=== PATIENT | female | born 1990 | race Caucasian/White ===

== ENCOUNTER 2017-10-24 21:05 | Emergency (ER) | payer MEDICAID ==
[2017-10-24] MEDS ORDERED: NS 1,000 ML IV ONE (21:38)
[2017-10-24 22:03] LABS: PLATELET COUNT 293 10^3/uL (150-400)
--- NOTE | 2017-10-24 22:06 | EDPHY ---
H & P Stated Complaint: abd pain- 4-5 weeks Time Seen by Provider: 10/24/17 21:34 HPI/ROS: CHIEF COMPLAINT: Right lower quadrant pain radiating to groin, 5 weeks HISTORY OF PRESENT ILLNESS: Patient is a 27-year-old female who comes to the emergency department her complaining of right lower quadrant pain radiating to her groin that began today. No fever. No urinary symptoms. No flank pain. No vaginal bleeding. She is 5 weeks . This is her 3rd . The other 2 were vaginal deliveries with no complications. She does have a history of endometriosis as well as PID and has been told that she has some scarring on her right ovary and fallopian tube. She is concerned about ectopic . She has been slightly nauseous but has not vomited. No history of abdominal surgeries. No diarrhea. Severity: Moderate Modifying factors: None REVIEW OF SYSTEMS: Constitutional: denies: chills, fever, recent illness, recent injury EENTM: denies: blurred vision, double vision, nose congestion Respiratory: denies: cough, shortness of breath Cardiac: denies: chest pain, irregular heart rate, lightheadedness, palpitations Gastrointestinal see HPI Genitourinary: See HPI, no dysuria or frequency, no hematuria, now pain Musculoskeletal: denies: joint pain, muscle pain Skin: denies: lesions, rash, jaundice, bruising Neurological: denies: headache, numbness, paresthesia, tingling, dizziness, weakness Hematologic/Lymphatic: denies: blood clots, easy bleeding, easy bruising Immunologic/allergic: denies: HIV/AIDS, transplant 10 systems reviewed and negative except as noted EXAM: GENERAL: Well-appearing, well-nourished and in no acute distress. HEAD: Atraumatic, normocephalic. EYES: Pupils equal round and reactive to light, extraocular movements intact, sclera anicteric, conjunctiva are normal. ENT: TMs normal, nares patent, oropharynx clear without exudates. Moist mucous membranes. NECK: Normal range of motion, supple without lymphadenopathy or JVD. LUNGS: Breath sounds clear to auscultation bilaterally and equal. No wheezes rales or rhonchi. HEART: Regular rate and rhythm without murmurs, rubs or gallops. ABDOMEN: Soft, nontender, normoactive bowel sounds. No guarding, no rebound. No masses appreciated. : Pelvic exam, no cervical motion tenderness, scant white discharge. No bleeding. Cultures taken and sent. BACK: No CVA tenderness, no spinal tenderness, step-offs or deformities EXTREMITIES: Normal range of motion, no pitting or edema. No clubbing or cyanosis. NEUROLOGICAL: Cranial nerves II through XII grossly intact. Normal speech, normal gait. 5/5 strength, normal movement in all extremities, normal sensation , normal reflexes PSYCH: Normal mood, normal affect. SKIN: Warm, dry, normal turgor, no visible rashes or lesions. Source: Patient Exam Limitations: No limitations - Personal History LMP (Females 10-55): Current Tetanus Diphtheria and Acellular Pertussis (TDAP): Yes - Medical/Surgical History Hx Asthma: No Hx Chronic Respiratory Disease: No Hx Diabetes: No Hx Cardiac Disease: No Hx Renal Disease: No Hx Cirrhosis: No Hx Alcoholism: No Hx HIV/AIDS: No Hx Splenectomy or Spleen Trauma: No Other PMH: endometrosis, PID - Family History Significant Family History: No pertinent family hx - Social History Smoking Status: Former smoker Alcohol Use: Sober Drug Use: None Constitutional: Initial Vital Signs Temperature (C) 37 C 10/24/17 21:08 Heart Rate 70 10/24/17 21:08 Respiratory Rate 20 10/24/17 21:08 Blood Pressure 153/76 H 10/24/17 21:08 O2 Sat (%) 99 10/24/17 21:08 O2 Delivery Mode Room Air Allergies/Adverse Reactions: No Known Allergies Allergy (Unverified 10/24/17 21:07) Home Medications: Medication Instructions Recorded NK [No Known Home Meds] 10/24/17 Medical Decision Making - Diagnostics Imaging: Discussed imaging studies w/ book trimmer Radiologist ED Course/Re-evaluation: 11:00 p.m. We discussed the patient's lab and ultrasound results which are overall reassuring. No seen currently. Her quant is quite low. She did have some spotting 1 week ago. It is possible she had a miscarriage verses an ectopic verses an intrauterine that is too early. She has no right lower quadrant tenderness. No sign of hematuria or kidney stone on ultrasound. I will refer her to OB for follow-up in 48-72 hours for recheck. We also discussed the possibility of appendicitis although she is not having those symptoms currently and indications for returning to the emergency department. 11:20 p.m. I spoke with Dr. Hudson from [facility]. He agrees with the plan to have patient follow up with them in 48 hr for repeat quant and ultrasound. He also requested we give her RhoGAM. She states that she has type a negative. Will confirm that here. She states that she has had to have RhoGAM with her previous 2 pregnancies. Differential Diagnosis: Partial list of the Differential diagnosis considered include but were not limited to; ectopic , miscarriage, ovarian cyst, kidney stone, urinary tract infection and although unlikely based on the history and physical exam, I also considered appendicitis, obstruction, PID. I discussed these differential diagnoses and the plan with the patient as well as the usual and expected course. The patient understands that the diagnosis is provisional and that in medicine we are not always correct and that further workup is often warranted. Usual and customary warnings were given. All of the patient's questions were answered. The patient was instructed to return to the emergency department should the symptoms at all worsen or return, otherwise to followup with the physician as we discussed. - Data Points Laboratory Results: Laboratory Results 10/24/17 21:50 10/24/17 21:50 Medications Given: Discontinued Medications Sodium Chloride (Ns) 1,000 mls @ 0 mls/hr IV EDNOW ONE; Wide Open PRN Reason: Protocol Stop: 10/24/17 21:39 Last Admin: 10/24/17 22:35 Dose: 1,000 mls Departure - Departure Disposition: Home, Routine, Self-Care Clinical Impression: Qualifiers: Weeks of gestation: unspecified Qualified Code(s): Z34.90 - Encounter for supervision of normal , unspecified, unspecified trimester Abdominal pain Qualifiers: Abdominal location: right lower quadrant Qualified Code(s): R10.31 - Right lower quadrant pain Condition: Fair Instructions: (ED), Abdominal Pain (ED) Additional Instructions: Follow-up in 24 hr with [facility] Dr. Monzon for repeat quant level and ultrasound. I will write she way lab order for the with quant that she maintain before going to see the OBGYN. RETURN TO THE LAB FOR A REPEAT TEST PRIOR TO YOUR FOLLOW UP DANCE IN[employer] APPT. YOU WILL NEED TO CALL FOR [employer] IN THE A.M. Referrals: Ayush Monzon MD [Medical Doctor] - 1-2 days without fail
[2017-10-25 01:23] VITALS: BP 110/67
[2017-10-25 12:11] LABS: GC AMPLIFICATION GENPROBE NEGATIVE (NEGATIVE)
== END 2017-10-25 01:15 | disposition home or self-care (01) ==
DX: O99.89 Other specified diseases and conditions complicating pregnancy, childbirth and the puerperium (principal); R10.31 Right lower quadrant pain; E86.9 Volume depletion, unspecified; Z3A.01 Less than 8 weeks gestation of pregnancy; Z87.891 Personal history of nicotine dependence

== ENCOUNTER 2018-02-11 12:33 | Emergency (ER) | payer MEDICAID ==
--- NOTE | 2018-02-11 12:58 | EDPHY ---
H & P Time Seen by Provider: 02/11/18 12:57 HPI/ROS: CHIEF COMPLAINT: Nausea and vomiting HISTORY OF PRESENT ILLNESS: Approximately 20 weeks started feeling sick last night with heartburn and reflux. She tried milk but it made her throw up and then she tried Tums and made her throw up she has had diarrhea about 10 times. She has no nausea but every time she tries to eat or drink something she has been vomiting for the last 12 hr. Symptoms moderate to severe, not associated with urinary symptoms vaginal bleeding or fever or chills. Initially pain was upper abdomen and epigastric region now it is more diffuse. REVIEW OF SYSTEMS: Eye: no change in vision ENT: no sore throat Cardiac: no chest pain or syncope Pulmonary: no short of breath, has had a dry nonproductive cough for the past 48 hr Abdomen: HPI Musculoskeletal: no back pain Skin: no rash Neuro: no headache Constitutional: no fever : no urinary symptoms A comprehensive 10 point review of systems is otherwise negative aside from elements mentioned in the history of present illness. PAST MEDICAL HISTORY: 20 weeks , previous visit 10/24/2017 reviewed Social history: Quit smoking, no alcohol General Appearance: Alert and conversant, cooperative. Eyes: No scleral icterus. ENT, Mouth: Dry mucous membranes Respiratory: Normal respiratory effort, breath sounds equal, lungs are clear to auscultation. No wheezing. Full sentences. Cardiovascular: Regular rate and rhythm. Gastrointestinal: Abdomen is soft and non tender. Gravid, negative for McBurney's point tenderness or Nuno sign. No rebound or guarding. Neurological: Alert, face symmetric, normal motor and sensory in extremities. Skin: Warm and dry, no rashes. Musculoskeletal: No peripheral edema. Psychiatric: Not agitated. Emergency Department course/MDM: The heart rate 125, afebrile, blood pressure 114/75. Patient would like to avoid antiemetic medications if possible. 2 L IV normal saline GI cocktail. Will reassess after labs and recommended antiemetics if she is still vomiting after hydration. 1348: feels better, less nausea, results discussed, still does not want nausea medication, would like to try and be discharged which I think is reasonable if she is not actively vomiting. 1434: Taking oral fluids, stable for discharge. Smoking Status: Former smoker Constitutional: Initial Vital Signs Temperature (C) 37 C 02/11/18 12:41 Heart Rate 125 H 02/11/18 12:41 Respiratory Rate 18 02/11/18 12:41 Blood Pressure 114/75 02/11/18 12:41 O2 Sat (%) 98 02/11/18 12:41 O2 Delivery Mode Room Air Allergies/Adverse Reactions: No Known Allergies Allergy (Unverified 10/24/17 21:07) Home Medications: Medication Instructions Recorded NK [No Known Home Meds] 10/24/17 Medical Decision Making Differential Diagnosis: Differential considered including but not limited to gastroenteritis, food related, reflux, appendicitis, pancreatitis or gallbladder disease - Data Points Laboratory Results: Laboratory Results 02/11/18 13:00 02/11/18 13:00 02/11/18 02/11/18 13:00 13:00 WBC 6.62 10^3/uL 10^3/uL (3.80-9.50) RBC 5.02 10^6/uL 10^6/uL (4.18-5.33) Hgb 14.1 g/dL g/dL (12.6-16.3) Hct 41.4 % % (38.0-47.0) MCV 82.5 fL fL (81.5-99.8) MCH 28.1 pg pg (27.9-34.1) MCHC 34.1 g/dL g/dL (32.4-36.7) RDW 14.2 % % (11.5-15.2) Plt Count 321 10^3/uL 10^3/uL (150-400) MPV 9.4 fL fL (8.7-11.7) Neut % (Auto) 88.2 % H % (39.3-74.2) Lymph % (Auto) 8.6 % L % (15.0-45.0) Cooke % (Auto) 2.7 % L % (4.5-13.0) Eos % (Auto) 0.0 % L % (0.6-7.6) Baso % (Auto) 0.2 % L % (0.3-1.7) Nucleat RBC Rel Count 0.0 % % (0.0-0.2) Absolute Neuts (auto) 5.84 10^3/uL 10^3/uL (1.70-6.50) Absolute Lymphs (auto) 0.57 10^3/uL L 10^3/uL (1.00-3.00) Absolute Monos (auto) 0.18 10^3/uL L 10^3/uL (0.30-0.80) Absolute Eos (auto) 0.00 10^3/uL L 10^3/uL (0.03-0.40) Absolute Basos (auto) 0.01 10^3/uL L 10^3/uL (0.02-0.10) Absolute Nucleated RBC 0.00 10^3/uL 10^3/uL (0-0.01) Immature Gran % 0.3 % % (0.0-1.1) Immature Gran # 0.02 10^3/uL 10^3/uL (0.00-0.10) RBC/WBC/PLT Morphology TNP Platelet Estimate TNP Sodium 136 mEq/L mEq/L (135-145) Potassium 3.9 mEq/L mEq/L (3.5-5.2) Chloride 107 mEq/L mEq/L (97-110) Carbon Dioxide 21 mEq/l L mEq/l (22-31) Anion Gap 8 mEq/L mEq/L (6-14) BUN 10 mg/dL mg/dL (7-23) Creatinine 0.6 mg/dL mg/dL (0.6-1.0) Estimated GFR > 60 Glucose 104 mg/dL H mg/dL (70-100) Calcium 8.7 mg/dL mg/dL (8.5-10.4) Total Bilirubin 0.5 mg/dL mg/dL (0.1-1.4) Conjugated Bilirubin 0.3 mg/dL mg/dL (0.0-0.5) Unconjugated Bilirubin 0.2 mg/dL mg/dL (0.0-1.1) AST 20 IU/L IU/L (14-46) ALT 18 IU/L IU/L (9-52) Alkaline Phosphatase 92 IU/L IU/L (38-126) Total Protein 6.9 g/dL g/dL (6.3-8.2) Albumin 3.6 g/dL g/dL (3.5-5.0) Lipase 67 IU/L IU/L (23-300) Medications Given: Discontinued Medications Al Hydroxide/Mg Hydroxide (Maalox Susp) 30 ml PO ONCE ONE Stop: 12/28/18 13:04 Last Admin: 02/11/18 13:25 Dose: 30 ml Hyoscyamine Sulfate (Levsin, Hyomax-Sl) 0.25 mg PO ONCE ONE Stop: 02/11/18 13:04 Last Admin: 02/11/18 13:23 Dose: 0.25 mg Sodium Chloride (Ns) 1,000 mls @ 0 mls/hr IV EDNOW ONE; Wide Open PRN Reason: Protocol Stop: 02/11/18 13:04 Last Admin: 02/11/18 13:06 Dose: 1,000 mls Sodium Chloride (Ns) 1,000 mls @ 0 mls/hr IV EDNOW ONE; Wide Open PRN Reason: Protocol Stop: 02/11/18 13:04 Last Admin: 02/11/18 13:22 Dose: 1,000 mls Lidocaine (Lidocaine 2% Viscous) 15 ml PO ONCE ONE Stop: 02/11/18 13:04 Last Admin: 02/11/18 13:25 Dose: 15 ml Departure - Departure Disposition: Home, Routine, Self-Care Clinical Impression: Nausea & vomiting Qualifiers: Vomiting type: unspecified Vomiting Intractability: non-intractable Qualified Code(s): R11.2 - Nausea with vomiting, unspecified Condition: Good Instructions: Acute Nausea and Vomiting (ED) Referrals: Ayush Monzon MD [Medical Doctor] - As per Instructions
[2018-02-11] MEDS ORDERED: LIDOCAINE 2% VISCOUS 15 ML UDCUP PO ONE (13:03)
[2018-02-11] MEDS ORDERED: MAG HYDROX/AL HYDROX/SIMETH 30 ML UDCUP PO ONE (13:03)
[2018-02-11] MEDS ORDERED: NS 1,000 ML IV ONE ×2 (13:03)
[2018-02-11] MEDS ORDERED: HYOSCYAMINE SULFATE 0.125 MG TAB PO ONE (13:03)
[2018-02-11 13:17] LABS: PLATELET COUNT 321 10^3/uL (150-400)
[2018-02-11 14:44] VITALS: BP 120/75
== END 2018-02-11 14:44 | disposition home or self-care (01) ==
DX: R11.2 Nausea with vomiting, unspecified (principal); E86.9 Volume depletion, unspecified

== ENCOUNTER 2018-06-28 05:54 | Inpatient (IN) | payer MEDICAID | END 2018-06-30 12:00 | disposition home or self-care (01) | LOC: FLD 05:54 → FOB 22:57 ==